=== PATIENT | male | born 1950 | race African-American/Black ===

== ENCOUNTER 2017-08-15 02:44 | Inpatient (IN) | payer MEDICARE, MEDICAID ==
[~2017-08-15] VITALS: Ht 177.8 cm; Wt 68.9 kg
[2017-08-15] MEDS ORDERED: MORPHINE SULFATE 2 MG/ML CPJ (NOT FOR IM USE) IV ONE (06:45)
[2017-08-15] MEDS ORDERED: ONDANSETRON HCL 4MG/2ML VIAL IV STA (11:05)
[2017-08-15] MEDS ORDERED: MORPHINE SULFATE 4 MG/ML CPJ (NOT FOR IM USE) IV STA (11:05)
[2017-08-15 11:37] LABS: EOSINOPHILS % 3.2 % (0.0-5.0); HEMOGLOBIN. 11.3 g/dL (14.0-18.0); LYMPHOCYTES % 8.8 % (20.0-50.0); MEAN CORPUSCULAR HEMOGLOBIN 29.5 pg (28.0-32.0); MEAN PLATELET VOLUME 9.9 fl (7.4-10.4); MONOCYTES % 7.8 % (2.0-8.0); NEUTROPHILS % 79.2 % (40.0-76.0); PLATELET 92 x1000/uL (130-400); RED BLOOD CELL COUNT 3.85 mill/uL (4.7-6.1); RED CELL DISTRIBUTION WIDTH 15.4 % (11.6-14.6)
[2017-08-15 11:47] LABS: INR 1.1; PARTIAL THROMBOPLASTIN TIME 30.8 sec (23.4-31.0)
[2017-08-15] MEDS ORDERED: MAGNESIUM/ALUMINUM HYDROXIDE/SIMETHICONE 30ML UDC PO PRN (16:15)
[2017-08-15] MEDS ORDERED: LORAZEPAM 2MG/ML CPJ IV PRN (16:15)
[2017-08-15] MEDS ORDERED: CLONIDINE 0.1MG TABLET PO PRN (16:15)
[2017-08-15] MEDS ORDERED: HYDROMORPHONE HCL/PF 2MG/ML CPJ IV PRN (16:15)
[2017-08-15] MEDS ORDERED: ACETAMINOPHEN 325MG TABLET PO PRN (16:15)
[2017-08-15 17:00] VITALS: BP 137/103
[2017-08-15] MEDS: HYDROCODONE/ACETAMINOPHEN 5/325MG TABLET PO PRN (17:57)
[2017-08-15] MEDS: AMLODIPINE 10MG TABLET PO SCH (17:58)
[2017-08-15 18:00] VITALS: BP 139/103
[2017-08-15 20:00] VITALS: BP 133/86
[2017-08-15] MEDS: ONDANSETRON HCL 4MG/2ML VIAL IV PRN (20:50)
[2017-08-15] MEDS: ENOXAPARIN 30MG/0.3ML SYR SUBCUT SCH (20:50)
[2017-08-15] MEDS: METOPROLOL TARTRATE 25MG TABLET PO SCH (20:51)
[2017-08-15] MEDS: MORPHINE SULFATE 4 MG/ML CPJ (NOT FOR IM USE) IV PRN (20:52)
[2017-08-16] VITALS: BP 130/78
[2017-08-16] MEDS: HYDROCODONE/ACETAMINOPHEN 5/325MG TABLET PO PRN (00:49)
[2017-08-16 04:00] VITALS: BP 119/70
[2017-08-16 08:00] VITALS: BP 123/77
[2017-08-16] MEDS: MORPHINE SULFATE 4 MG/ML CPJ (NOT FOR IM USE) IV PRN ×3 (08:32→20:47)
[2017-08-16] MEDS: METOPROLOL TARTRATE 25MG TABLET PO SCH ×2 (09:00→20:46)
[2017-08-16] MEDS: AMLODIPINE 10MG TABLET PO SCH (10:06)
[2017-08-16] MEDS: ASPIRIN 81MG EC TABLET PO SCH (10:06)
[2017-08-16 10:29] LABS: BASOPHILS % 1.5 % (0.0-2.0); EOSINOPHILS % 7.9 % (0.0-5.0); HEMATOCRIT. 36.1 % (42.0-52.0); HEMOGLOBIN. 11.7 g/dL (14.0-18.0); LYMPHOCYTES % 14.1 % (20.0-50.0); MEAN CORPUSCULAR HEMOGLOBIN 29.6 pg (28.0-32.0); MEAN CORPUSCULAR VOLUME 91.1 fL (80.0-94.0); MEAN PLATELET VOLUME 10.5 fl (7.4-10.4); MONOCYTES % 10.2 % (2.0-8.0); NEUTROPHILS % 66.3 % (40.0-76.0); PLATELET 89 x1000/uL (130-400); RED BLOOD CELL COUNT 3.96 mill/uL (4.7-6.1); RED CELL DISTRIBUTION WIDTH 15.5 % (11.6-14.6)
[2017-08-16 10:44] LABS: CHLORIDE 105 mEq/L (98-107)
[2017-08-16 12:00] VITALS: BP 126/90
[2017-08-16] MEDS: HYDROCODONE/ACETAMINOPHEN 10/325MG TABLET PO PRN ×2 (13:41→22:56)
[2017-08-16 16:00] VITALS: BP 121/68
[2017-08-16] MEDS ORDERED: ASCORBIC ACID 500 MG TABLET PO SCH (17:00)
[2017-08-16] MEDS: ASCORBIC ACID 500 MG TABLET PO SCH (17:06)
[2017-08-16 20:00] VITALS: BP 130/78
[2017-08-16] MEDS: ONDANSETRON HCL 4MG/2ML VIAL IV PRN (20:45)
[2017-08-16] MEDS: ENOXAPARIN 30MG/0.3ML SYR SUBCUT SCH (20:46)
[2017-08-17] VITALS: BP 125/74
[2017-08-17] MEDS: MORPHINE SULFATE 4 MG/ML CPJ (NOT FOR IM USE) IV PRN ×3 (02:02→23:18)
[2017-08-17 04:00] VITALS: BP 113/73
[2017-08-17 07:06] LABS: BASOPHILS % 1.3 % (0.0-2.0); EOSINOPHILS % 9.7 % (0.0-5.0); HEMATOCRIT. 35.6 % (42.0-52.0); HEMOGLOBIN. 11.4 g/dL (14.0-18.0); LYMPHOCYTES % 15.8 % (20.0-50.0); MEAN CORPUSCULAR HEMOGLOBIN 29.2 pg (28.0-32.0); MEAN CORPUSCULAR VOLUME 91.4 fL (80.0-94.0); MEAN PLATELET VOLUME 10.5 fl (7.4-10.4); MONOCYTES % 14.5 % (2.0-8.0); NEUTROPHILS % 58.7 % (40.0-76.0); PLATELET 97 x1000/uL (130-400); RED BLOOD CELL COUNT 3.89 mill/uL (4.7-6.1); RED CELL DISTRIBUTION WIDTH 15.8 % (11.6-14.6)
[2017-08-17] MEDS: METOPROLOL TARTRATE 25MG TABLET PO SCH ×2 (07:53→19:53)
[2017-08-17] MEDS: AMLODIPINE 10MG TABLET PO SCH (07:53)
[2017-08-17 08:00] VITALS: BP 112/70
[2017-08-17] MEDS ORDERED: FOLIC ACID/VITAMIN B COMP W-C TABLET PO SCH (09:00)
[2017-08-17] MEDS: ASPIRIN 81MG EC TABLET PO SCH (09:05)
[2017-08-17] MEDS: HYDROCODONE/ACETAMINOPHEN 10/325MG TABLET PO PRN ×2 (09:05→19:54)
[2017-08-17] MEDS: FOLIC ACID/VITAMIN B COMP W-C TABLET PO SCH (09:05)
[2017-08-17] MEDS: ASCORBIC ACID 500 MG TABLET PO SCH ×2 (09:05→16:57)
[2017-08-17 12:00] VITALS: BP 131/65
[2017-08-17 16:00] VITALS: BP 144/78
[2017-08-17 20:00] VITALS: BP 145/83
[2017-08-17] MEDS: ENOXAPARIN 30MG/0.3ML SYR SUBCUT SCH (23:29)
[2017-08-18] VITALS: BP 119/77
[2017-08-18 04:00] VITALS: BP 104/74
[2017-08-18 08:00] VITALS: BP 131/74
[2017-08-18] MEDS: HYDROCODONE/ACETAMINOPHEN 10/325MG TABLET PO PRN ×2 (08:34→15:37)
[2017-08-18] MEDS: AMLODIPINE 10MG TABLET PO SCH (08:36)
[2017-08-18] MEDS: ASPIRIN 81MG EC TABLET PO SCH (08:36)
[2017-08-18] MEDS: FOLIC ACID/VITAMIN B COMP W-C TABLET PO SCH (08:36)
[2017-08-18] MEDS: METOPROLOL TARTRATE 25MG TABLET PO SCH ×2 (08:37→21:00)
[2017-08-18] MEDS: ASCORBIC ACID 500 MG TABLET PO SCH ×2 (08:37→19:40)
[2017-08-18] MEDS: MORPHINE SULFATE 4 MG/ML CPJ (NOT FOR IM USE) IV PRN ×2 (11:57→19:41)
[2017-08-18 12:00] VITALS: BP 111/66
[2017-08-18] MEDS: ZINC SULFATE 220 MG ( 50 ) CAPSULE PO SCH (15:37)
[2017-08-18 16:00] VITALS: BP 118/72
[2017-08-18 19:38] VITALS: BP 127/73
[2017-08-18] MEDS: ENOXAPARIN 30MG/0.3ML SYR SUBCUT SCH (21:32)
[2017-08-19] VITALS: BP 125/75
[2017-08-19] MEDS: MORPHINE SULFATE 4 MG/ML CPJ (NOT FOR IM USE) IV PRN ×2 (01:54→10:41)
[2017-08-19 04:00] VITALS: BP 134/77
[2017-08-19 06:51] LABS: HEMATOCRIT. 34.8 % (42.0-52.0); HEMOGLOBIN. 11.3 g/dL (14.0-18.0); MEAN CORPUSCULAR HEMOGLOBIN 29.8 pg (28.0-32.0); MEAN CORPUSCULAR VOLUME 91.5 fL (80.0-94.0); MEAN PLATELET VOLUME 10.5 fl (7.4-10.4); PLATELET 100 x1000/uL (130-400); RED BLOOD CELL COUNT 3.81 mill/uL (4.7-6.1)
[2017-08-19 08:00] VITALS: BP 131/79
[2017-08-19] MEDS: AMLODIPINE 10MG TABLET PO SCH (09:00)
[2017-08-19] MEDS: METOPROLOL TARTRATE 25MG TABLET PO SCH (09:00)
[2017-08-19] MEDS: FOLIC ACID/VITAMIN B COMP W-C TABLET PO SCH (09:18)
[2017-08-19] MEDS: ASPIRIN 81MG EC TABLET PO SCH (09:18)
[2017-08-19] MEDS: ZINC SULFATE 220 MG ( 50 ) CAPSULE PO SCH (09:18)
[2017-08-19] MEDS: ASCORBIC ACID 500 MG TABLET PO SCH (09:18)
[2017-08-19] MEDS ORDERED: DOCUSATE SODIUM 100MG CAPSULE PO SCH (10:12)
[2017-08-19] MEDS ORDERED: LACTULOSE 20G/30ML UDC PO NR (10:12)
[2017-08-19 10:25] LABS: PLATELET ESTIMATE DECREASED
[2017-08-19] MEDS ORDERED: HEPARIN SODIUM 1,000 UNIT/1ML VIAL IV NR (11:45)
[2017-08-19 12:00] VITALS: BP 154/93
[2017-08-19 15:15] VITALS: BP 135/87
== END 2017-08-19 16:50 | disposition home health service (06) | DRG 622 ==
LOC: ER 07:48 → 7WST 12:52 → EDBEDREQTM 12:56 → EDBEDREQ 12:56 → ENRESERV 14:56 → SUPCPDRO 16:04
PROVIDERS: ADMIT Hospitalist; ATTEND Hospitalist
PROC: 5A1D70Z Performance of Urinary Filtration, Intermittent, Less than 6 Hours Per Day (ICD-10-PCS; 2017-08-17)
PROC: 0JBR0ZZ Excision of Left Foot Subcutaneous Tissue and Fascia, Open Approach (ICD-10-PCS; principal; 2017-08-19)
PROC: 5A1D70Z Performance of Urinary Filtration, Intermittent, Less than 6 Hours Per Day (ICD-10-PCS; 2017-08-19)
DX: E11.621 Type 2 diabetes mellitus with foot ulcer (principal); E43 Unspecified severe protein-calorie malnutrition; I13.11 Hypertensive heart and chronic kidney disease without heart failure, with stage 5 chronic kidney disease, or end stage renal disease; N18.6 End stage renal disease; M25.551 Pain in right hip; E83.51 Hypocalcemia; D69.6 Thrombocytopenia, unspecified; D63.1 Anemia in chronic kidney disease; W10.9XXA Fall (on) (from) unspecified stairs and steps, initial encounter; E11.22 Type 2 diabetes mellitus with diabetic chronic kidney disease; F12.90 Cannabis use, unspecified, uncomplicated; F17.290 Nicotine dependence, other tobacco product, uncomplicated; L97.529 Non-pressure chronic ulcer of other part of left foot with unspecified severity; M19.90 Unspecified osteoarthritis, unspecified site; Y93.89 Activity, other specified; Y92.89 Other specified places as the place of occurrence of the external cause; Y99.8 Other external cause status; Z85.05 Personal history of malignant neoplasm of liver; Z99.2 Dependence on renal dialysis; Z68.21 Body mass index [BMI] 21.0-21.9, adult
CPT/HCPCS: 36415; 71045; 72192; 73502; 80048; 80053; 85025; 85610; 85730; 86850; 86900; 93005; 93970; 96374; 96375; 96376; 97162; 99285; J1644; J1650; J2270; J2405; J7030